=== PATIENT | female | born 1975 | race Caucasian/White ===

== ENCOUNTER → 2020-11-01 11:07 | Outpatient (CLI) | payer BC, SELFPAY ==
--- NOTE | 2020-11-01 11:12 | XR_ITS ---
PROCEDURE: XR KNEE LT 3V CLINICAL INDICATION: LT KNEE PAIN COMPARISON: No exams were available for comparison FINDINGS: There are mild osteoarthritic changes involving the medial compartment and patellofemoral joint. No acute fracture or dislocation. Other findings:None. IMPRESSION: Mild osteoarthritis Dictated by: Brett Martinez MD 11/01/2020 11:36 Brett Martinez MD in [facility] 11/01/2020 11:36
== END ==
PROVIDERS: PCP Internal Medicine Adolescent Medicine; Visit Provider Internal Medicine Adolescent Medicine
DX: M25.562 Pain in left knee (principal)
CPT/HCPCS: 73562

== ENCOUNTER → 2021-07-26 10:31 | Outpatient (CLI) | payer BC, SELFPAY | PROVIDERS: PCP Internal Medicine Adolescent Medicine; Visit Provider Nurse Practitioner Family | DX: R39.15 Urgency of urination (principal) | CPT/HCPCS: 87086 ==

== ENCOUNTER 2022-10-30 15:30 | Outpatient (RCR) | payer BC, SELFPAY | END 2022-10-30 15:35 | disposition home or self-care (01) | LOC: OT 15:30 | PROVIDERS: PCP Internal Medicine Adolescent Medicine; Visit Provider Physician Assistant | DX: M25.512 Pain in left shoulder (principal); M75.102 Unspecified rotator cuff tear or rupture of left shoulder, not specified as traumatic | CPT/HCPCS: 97010; 97014; 97035; 97110; 97140; 97165; 97530; G0283 ==